=== PATIENT | female | born 1950 | race Caucasian/White ===

== ENCOUNTER → 2018-02-05 | Outpatient (CLI) | payer MEDICARE ==
--- NOTE | 2018-02-06 16:26 | BD ---
EXAMINATION TYPE: MG DEXA axial skeleton. DATE OF EXAM: 02/05/2018 COMPARISON: NONE CLINICAL HISTORY: 67 YR OLD FEMALE....ICD-10 CODE: Z13.820 SCREENING FOR OSTEOPOROSIS Height: 64.5 Weight: 248 FRAX RISK QUESTIONS: Alcohol (3 or more units per day): NO Family History (Parent hip fracture): NO Glucocorticoids (More than 3mos): NO (Ex: prednisone, prednisolone, methylprednisolone, dexamethasone, and hydrocortisone). History of Fracture in Adulthood: NO Secondary Osteoporosis: NO 1. Type 1 Diabetes: NO 2. Hyperthyroidism: NO 3. Menopause before 45: NO 4. Malnutrition: NO 5. 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 Bone mineral density as measured about the Lumbar spine is: ----- L1-L4(G/cm2): 1.547 T Score Values are as follows: ----- L1: 2.1 ----- L2: 3.7 ----- L3: 4.1 ----- L4: 2.4 ----- L1-L4: 3.1 Bone mineral density FIRST BONE DENSITY AT [facility] Bone mineral density about the R hip (g/cm2): 1.029 Bone mineral density about the L hip (g/cm2): 1.041 T Score values are as follows: -----R Neck: -0.7 -----L Neck: -0.9 -----R Total: 0.2 -----L Total: 0.3 Bone mineral density NEW TO [facility] FRAX%s: THERE IS A 7.5% CHANCE OF A MAJOR OSTEOPOROSIS AND A 0.7% FOR HIP FX....PROBABILITY OF FX IN 10 YRS TIME IMPRESSION: Normal (Values between +1 and -1 indicate normal bone mass). Consider repeating this study in 5 year s or sooner if there is some new clinical indication. NOTE: T-SCORE=SD OF THE YOUNG ADULT MEAN.
--- NOTE | 2018-02-07 09:23 | MM ---
Reason for exam: screening (asymptomatic). Last mammogram was performed 1 year and 7 months ago. History: Patient is postmenopausal. Family history of breast cancer in mother at age 60 and breast cancer in aunt at age 60. Benign excisional biopsy of the left breast, 1999. Physical Findings: A clinical breast exam by your physician is recommended on an annual basis and results should be correlated with mammographic findings. MG 3D Screening Mammo W/Cad Bilateral CC and MLO view(s) were taken. Prior study comparison: June 28, 2016, bilateral MG 3d screening mammo w/cad. August 05, 2013, bilateral digital screening mammo w/CAD. There are scattered fibroglandular densities. No significant changes when compared with prior studies. ASSESSMENT: Negative, BI-RAD 1 RECOMMENDATION: Routine screening mammogram of both breasts in 1 year.
== END | disposition home or self-care (01) ==
LOC: RADMAMWWP 15:34
PROVIDERS: ATTEND Family Medicine
DX: Z12.31 Encounter for screening mammogram for malignant neoplasm of breast (principal); Z13.820 Encounter for screening for osteoporosis
CPT/HCPCS: 77063; 77067; 77080

== ENCOUNTER 2019-01-10 21:25 | Observation (INO) | payer MEDICARE ==
[2019-01-10] MEDS ORDERED: NITROGLYCERIN OINT 1 INCH/GM PACKET TOPICAL STA (21:48)
[2019-01-10] MEDS ORDERED: ASPIRIN 81 MG PO STA (21:48)
--- NOTE | 2019-01-10 21:51 | ED ---
General Adult HPI - General Chief complaint: Chest Pain Stated complaint: chest pain Time Seen by Provider: 01/10/19 21:43 Source: patient, family, RN notes reviewed Mode of arrival: wheelchair Limitations: no limitations - History of Present Illness Initial comments: Patient is a pleasant 68-year-old female presenting to the emergency department with chest discomfort. Onset of symptoms was around a half an hour ago. Symptoms lasted approximately 20 minutes and have resolved at this point. Discomfort was 7/10. Discomfort felt like an ache left chest. No radiation. No associated dyspnea or nausea or diaphoresis. Patient did feel somewhat flu shed. No history of similar symptoms previously. - Related Data Home Medications Medication Instructions Recorded Confirmed 7-Keto-Zyme 1 cap PO DAILY 01/10/19 01/10/19 Cholecalciferol [Vitamin D3] 1,000 unit PO DAILY 01/10/19 01/10/19 Chromium Picolinate 800 mcg PO DAILY 01/10/19 01/10/19 Cinnamon 1000mg 2,000 mg PO DAILY 01/10/19 01/10/19 Dm/Acetaminophen/Doxylamine [Vicks 20 ml PO HS 01/10/19 01/10/19 Nyquil Cold-Flu Liquid] User Support Analyst Oral Capsule 1 cap PO DAILY 01/10/19 01/10/19 Hydrochlorothiazide [Hydrodiuril] 12.5 mg PO DAILY 01/10/19 01/10/19 Ibuprofen [Motrin Ib] 600 mg PO Q6H PRN 01/10/19 01/10/19 Krill Oil Plus 1 cap PO DAILY 01/10/19 01/10/19 Lact-Enz Probiotic 1 cap PO DAILY 01/10/19 01/10/19 Liquid Iodine 0.5 ml PO DAILY 01/10/19 01/10/19 Alfredito-Stim 1 cap PO DAILY 01/10/19 01/10/19 Saventaro Cat's Claw 1 tab PO DAILY 01/10/19 01/10/19 Turmeric 400 Mg 400 mg PO DAILY 01/10/19 01/10/19 Ubidecarenone [Co Q-10] 200 mg PO DAILY 01/10/19 01/10/19 Allergies Allergy/AdvReac Type Severity Reaction Status Date / Time amoxicillin [From Augmentin] AdvReac Nausea & Verified 01/10/19 21:55 Vomiting & Diarrhea clavulanic acid AdvReac Nausea & Verified 01/10/19 21:55 [From Augmentin] Vomiting & Diarrhea Review of Systems ROS Statement: Those systems with pertinent positive or pertinent negative responses have been documented in the HPI. ROS Other: All systems not noted in ROS Statement are negative. Constitutional: Denies: fever Eyes: Denies: eye pain ENT: Denies: ear pain Respiratory: Denies: cough, dyspnea Cardiovascular: Reports: chest pain Endocrine: Denies: fatigue Gastrointestinal: Denies: abdominal pain Genitourinary: Denies: dysuria Musculoskeletal: Denies: back pain Skin: Denies: rash Neurological: Denies: weakness Past Medical History Past Medical History: Fibromyalgia Additional Past Medical History / Comment(s): lyme History of Any Multi-Drug Resistant Organisms: None Reported Past Surgical History: Cholecystectomy Past Psychological History: No Psychological Hx Reported Smoking Status: Never smoker Past Alcohol Use History: None Reported Past Drug Use History: None Reported General Exam Limitations: no limitations General appearance: alert, in no apparent distress Head exam: Present: atraumatic Eye exam: Present: normal appearance, PERRL ENT exam: Present: normal oropharynx Neck exam: Present: normal inspection Respiratory exam: Present: normal lung sounds bilaterally. Absent: chest wall tenderness Cardiovascular Exam: Present: regular rate, normal rhythm Expanded Peripheral pulses: 2+: Radial (R), Radial (L), Dorsalis Pedis (R), Dorsalis Pedis (L) GI/Abdominal exam: Present: soft. Absent: tenderness Extremities exam: Present: normal inspection. Absent: pedal edema, calf tenderness Neurological exam: Present: alert Psychiatric exam: Present: normal affect, normal mood Skin exam: Present: normal color Course Vital Signs 01/10/19 01/10/19 01/10/19 21:28 22:31 23:00 Temperature 98.5 F 98.3 F Pulse Rate 86 77 92 Respiratory 18 20 16 Rate Blood Pressure 171/77 133/73 125/69 O2 Sat by Pulse 100 97 98 Oximetry EKG Findings - EKG Comments: EKG Findings:: Normal sinus rhythm 72. [place] 168. QRS 76. QT 404. QTC 442. Left axis. Normal QRS. No acute ST change. Medical Decision Making - Medical Decision Making Patient reevaluated and resting comfortably in bed, symptom free. Patient updated on results and plan. Case was discussed in detail with Dr. dimas, who will admit covering for Dr. Moe. - Lab Data Result diagrams: 01/10/19 22:16 01/10/19 22:16 Lab Results 01/10/19 01/10/19 01/10/19 Range/Units 22:16 22:16 22:16 WBC 7.0 (3.8-10.6) k/uL RBC 5.06 (3.80-5.40) m/uL Hgb 14.9 (11.4-16.0) gm/dL Hct 44.9 (34.0-46.0) % MCV 88.7 (80.0-100.0) fL MCH 29.4 (25.0-35.0) pg MCHC 33.2 (31.0-37.0) g/dL RDW 15.3 (11.5-15.5) % Plt Count 207 (150-450) k/uL Neutrophils % 64 % Lymphocytes % 27 % Monocytes % 5 % Eosinophils % 2 % Basophils % 1 % Neutrophils # 4.5 (1.3-7.7) k/uL Lymphocytes # 1.9 (1.0-4.8) k/uL Monocytes # 0.4 (0-1.0) k/uL Eosinophils # 0.2 (0-0.7) k/uL Basophils # 0.0 (0-0.2) k/uL PT 9.4 (9.0-12.0) sec INR 0.8 (<1.2) APTT 23.4 (22.0-30.0) sec Sodium 140 (137-145) mmol/L Potassium 5.0 (3.5-5.1) mmol/L Chloride 105 (98-107) mmol/L Carbon Dioxide 29 (22-30) mmol/L Anion Gap 6 mmol/L BUN 18 H (7-17) mg/dL Creatinine 0.89 (0.52-1.04) mg/dL Est GFR (CKD-EPI)AfAm 76 (>60 ml/min/1.73 sqM) Est GFR (CKD-EPI)NonAf 66 (>60 ml/min/1.73 sqM) Glucose 157 H (74-99) mg/dL Calcium 9.7 (8.4-10.2) mg/dL Magnesium 2.1 (1.6-2.3) mg/dL Total Bilirubin 0.7 (0.2-1.3) mg/dL AST 33 (14-36) U/L ALT 31 (9-52) U/L Alkaline Phosphatase 61 (38-126) U/L Creatine Kinase 100 (30-135) U/L Troponin I (0.000-0.034) ng/mL Total Protein 7.5 (6.3-8.2) g/dL Albumin 4.5 (3.5-5.0) g/dL 01/10/19 Range/Units 22:16 WBC (3.8-10.6) k/uL RBC (3.80-5.40) m/uL Hgb (11.4-16.0) gm/dL Hct (34.0-46.0) % MCV (80.0-100.0) fL MCH (25.0-35.0) pg MCHC (31.0-37.0) g/dL RDW (11.5-15.5) % Plt Count (150-450) k/uL Neutrophils % % Lymphocytes % % Monocytes % % Eosinophils % % Basophils % % Neutrophils # (1.3-7.7) k/uL Lymphocytes # (1.0-4.8) k/uL Monocytes # (0-1.0) k/uL Eosinophils # (0-0.7) k/uL Basophils # (0-0.2) k/uL PT (9.0-12.0) sec INR (<1.2) APTT (22.0-30.0) sec Sodium (137-145) mmol/L Potassium (3.5-5.1) mmol/L Chloride (98-107) mmol/L Carbon Dioxide (22-30) mmol/L Anion Gap mmol/L BUN (7-17) mg/dL Creatinine (0.52-1.04) mg/dL Est GFR (CKD-EPI)AfAm (>60 ml/min/1.73 sqM) Est GFR (CKD-EPI)NonAf (>60 ml/min/1.73 sqM) Glucose (74-99) mg/dL Calcium (8.4-10.2) mg/dL Magnesium (1.6-2.3) mg/dL Total Bilirubin (0.2-1.3) mg/dL AST (14-36) U/L ALT (9-52) U/L Alkaline Phosphatase (38-126) U/L Creatine Kinase (30-135) U/L Troponin I <0.012 (0.000-0.034) ng/mL Total Protein (6.3-8.2) g/dL Albumin (3.5-5.0) g/dL - Radiology Data Radiology results: image reviewed (Chest x-ray shows no acute process) Disposition Clinical Impression: Chest pain Disposition: ADMITTED IP TO THIS HOSP Is patient prescribed a controlled substance at d/c from ED?: No Referrals: Michael Moe MD [Primary Care Provider] - 1-2 days Decision Time: 23:56
[2019-01-10 22:28] LABS: Basophils % (A) 1 %; Eosinophils # (A) 0.2 k/uL (0-0.7); Eosinophils % (A) 2 %; HCT 44.9 % (34.0-46.0); HGB 14.9 gm/dL (11.4-16.0); Lymphocytes # (A) 1.9 k/uL (1.0-4.8); Lymphocytes % (A) 27 %; MCH 29.4 pg (25.0-35.0); MCHC 33.2 g/dL (31.0-37.0); MCV 88.7 fL (80.0-100.0); Mean Platelet Volume 7.2; Monocytes # (A) 0.4 k/uL (0-1.0); Monocytes % (A) 5 %; Neutrophils # (A) 4.5 k/uL (1.3-7.7); Neutrophils % (A) 64 %; Platelet Count 207 k/uL (150-450); RBC 5.06 m/uL (3.80-5.40); RDW 15.3 % (11.5-15.5)
--- NOTE | 2019-01-10 22:34 | XR ---
EXAM: XR Chest, 2 Views CLINICAL HISTORY: Reason: Chest Pain TECHNIQUE: Frontal and lateral views of the chest. COMPARISON: None available FINDINGS: Lungs: Lung volumes with mild bibasilar subsegmental atelectasis. No focal pulmonary infiltrates or consolidations. Pleural space: No evidence of pleural effusion or pneumothorax. Heart: Heart size is within normal limits. Mediastinum: Mediastinal structures are unremarkable. Vasculature: Thoracic aorta is elongated. Bones/joints: Hypertrophic degenerative changes involving thoracic spine. Mild mid thoracic vertebral compression fractures of indeterminate age. IMPRESSION: No evidence of acute cardiopulmonary disease. Bony findings as described in body of report.
[2019-01-10 22:39] LABS: INR 0.8 (<1.2); Partial Thromboplastin Time 23.4 sec (22.0-30.0); Prothrombin Time 9.4 sec (9.0-12.0)
[2019-01-10 22:40] LABS: Albumin 4.5 g/dL (3.5-5.0); Calcium 9.7 mg/dL (8.4-10.2); Magnesium 2.1 mg/dL (1.6-2.3); Total Bilirubin 0.7 mg/dL (0.2-1.3); Total Protein 7.5 g/dL (6.3-8.2)
[2019-01-10] MEDS ORDERED: NITROGLYCERIN SL TABS 0.4 MG TAB SUBLINGUAL PRN (23:56)
[2019-01-11] MEDS ORDERED: NITROGLYCERIN OINT 1 INCH/GM PACKET TOPICAL SCH
[2019-01-11 03:22] VITALS: BP 128/89; PULSE 82; RESP 20; TEMP 98.4
[2019-01-11] MEDS ORDERED: ASPIRIN 325 MG TAB PO SCH (09:00)
== END 2019-01-11 03:26 | disposition other institution (70) ==
LOC: EC 21:25 → 1SOBS 23:56
PROVIDERS: ADMIT Hospitalist; ATTEND Hospitalist
DX: R07.89 Other chest pain (principal); Z88.0 Allergy status to penicillin; Z88.1 Allergy status to other antibiotic agents; Z79.891 Long term (current) use of opiate analgesic; Z79.899 Other long term (current) drug therapy
CPT/HCPCS: 36415; 71046; 80053; 82550; 83735; 84484; 85025; 85610; 85730; 93005; 99285

== ENCOUNTER → 2019-02-18 | Outpatient (CLI) | payer MEDICARE | LOC: LABWHC1 11:24 | PROVIDERS: ATTEND Otolaryngology | DX: J30.89 Other allergic rhinitis (principal) | CPT/HCPCS: 36415 ==

== ENCOUNTER 2019-07-16 12:26 | Emergency (ER) | payer MEDICARE ==
[2019-07-16] MEDS ORDERED: MORPHINE SULFATE 4 MG/ML SYRINGE IVP STA (12:32)
[2019-07-16 12:42] VITALS: RESP 16
--- NOTE | 2019-07-16 12:48 | ED ---
Fall HPI - General Source: patient, EMS, RN notes reviewed Mode of arrival: EMS Limitations: no limitations <Glenn Vaughn - Last Filed: 07/16/19 16:23> <Lindsey Ingram - Last Filed: 07/20/19 23:51> - General Stated Complaint: Fall Time Seen by Provider: 07/16/19 12:31 - History of Present Illness Initial Comments: 69-year-old female presents emergency Department with chief complaint of fall, right shoulder injury. Patient states that she had with feet states that she went into her garage slipped falling onto her right shoulder. She denies any head injury no loss conscious. Patient has no neck pain, back pain, hip pain. Patient's only complaint is her right shoulder. Patient states that it hurts to move and states that nothing makes it feel improved at this time. Patient denies any paresthesias no elbow or forearm pain (Glenn Vaughn) - Related Data Home Medications Medication Instructions Recorded Confirmed Cholecalciferol [Vitamin D3] 1,000 unit PO DAILY 01/10/19 07/16/19 Chromium Picolinate 800 mcg PO DAILY 01/10/19 07/16/19 Cinnamon 1000mg 2,000 mg PO DAILY 01/10/19 07/16/19 Hydrochlorothiazide [Hydrodiuril] 12.5 mg PO DAILY 01/10/19 07/16/19 Krill Oil Plus 1 cap PO DAILY 01/10/19 07/16/19 Lact-Enz Probiotic 1 cap PO DAILY 01/10/19 07/16/19 Saventaro Cat's Claw 1 tab PO DAILY 01/10/19 07/16/19 Turmeric 400 Mg 400 mg PO DAILY 01/10/19 07/16/19 Ubidecarenone [Co Q-10] 200 mg PO DAILY 01/10/19 07/16/19 Allergies Allergy/AdvReac Type Severity Reaction Status Date / Time amoxicillin [From Augmentin] AdvReac Nausea & Verified 07/16/19 14:08 Vomiting & Diarrhea clavulanic acid AdvReac Nausea & Verified 07/16/19 14:08 [From Augmentin] Vomiting & Diarrhea Review of Systems ROS Other: All systems not noted in ROS Statement are negative. <Glenn Vaughn - Last Filed: 07/16/19 16:23> ROS Other: All systems not noted in ROS Statement are negative. <Lindsey Ingram - Last Filed: 07/20/19 23:51> ROS Statement: Those systems with pertinent positive or pertinent negative responses have been documented in the HPI. Past Medical History Past Medical History: Fibromyalgia Additional Past Medical History / Comment(s): lyme History of Any Multi-Drug Resistant Organisms: None Reported Past Surgical History: Cholecystectomy Past Psychological History: No Psychological Hx Reported Smoking Status: Never smoker Past Alcohol Use History: None Reported Past Drug Use History: None Reported <Glenn Vaughn - Last Filed: 07/16/19 16:23> General Exam Limitations: no limitations General appearance: alert, in no apparent distress Head exam: Present: atraumatic, normocephalic, normal inspection Eye exam: Present: normal appearance, PERRL, EOMI. Absent: scleral icterus, conjunctival injection, periorbital swelling ENT exam: Present: normal exam, normal oropharynx, mucous membranes moist Neck exam: Present: normal inspection, full ROM. Absent: tenderness, meningismus, lymphadenopathy Respiratory exam: Present: normal lung sounds bilaterally. Absent: respiratory distress, wheezes, rales, rhonchi, stridor, chest wall tenderness Cardiovascular Exam: Present: regular rate, normal rhythm, normal heart sounds. Absent: systolic murmur, diastolic murmur, rubs, gallop, clicks Extremities exam: Present: other (Right shoulder limited range of motion, tenderness with palpation, neurovascular intact, no elbow or forearm tenderness on the right) Neurological exam: Present: alert, oriented X3, CN II-XII intact, reflexes normal. Absent: motor sensory deficit <Glenn Vaughn - Last Filed: 07/16/19 16:23> Course Vital Signs 07/16/19 07/16/19 07/16/19 12:35 14:15 14:20 Temperature 98.6 F Pulse Rate 89 55 L 53 L Respiratory 16 16 16 Rate Blood Pressure 130/73 126/75 126/75 O2 Sat by Pulse 97 98 98 Oximetry 07/16/19 07/16/19 07/16/19 14:25 14:30 14:35 Temperature Pulse Rate 60 71 60 Respiratory 16 16 16 Rate Blood Pressure 127/80 141/88 127/80 O2 Sat by Pulse 99 99 99 Oximetry 07/16/19 07/16/19 07/16/19 14:40 14:45 14:50 Temperature Pulse Rate 52 L 59 L 50 L Respiratory 16 16 16 Rate Blood Pressure 116/63 131/72 117/78 O2 Sat by Pulse 99 99 99 Oximetry 07/16/19 07/16/19 07/16/19 14:55 15:00 15:05 Temperature Pulse Rate 54 L 60 61 Respiratory 16 16 16 Rate Blood Pressure 114/66 126/67 115/57 O2 Sat by Pulse 99 99 99 Oximetry 07/16/19 07/16/19 07/16/19 15:10 15:15 15:30 Temperature Pulse Rate 56 L 55 L 62 Respiratory 16 16 16 Rate Blood Pressure 93/67 119/75 118/68 O2 Sat by Pulse 99 98 99 Oximetry 07/16/19 07/16/19 07/16/19 15:45 16:00 17:00 Temperature 97.9 F Pulse Rate 60 59 L 61 Respiratory 16 16 16 Rate Blood Pressure 119/67 120/59 127/69 O2 Sat by Pulse 98 99 98 Oximetry Procedures - Procedural Sedation Procedural Sedation Start Time: 14:25 Procedural Sedation Stop Time: 14:55 Indications: fracture/dislocation reduction ASA Class: II Mallampati Airway Score: 3 Time of Last PO Intake: 10:30 Preparation: residential monitor applied, pulse oximeter, capnometry used, supplemental O2 applied, suction/airway equipment at bedside, IV secured IV Propofol Dose (mgs): 150 (mg) Complications: none Patient Tolerated Procedure: well, no complications <Lindsey Ingram - Last Filed: 07/20/19 23:51> - Procedural Sedation Additional Comments: post reduction x-rays obtained (Lindsey Ingram) Medical Decision Making <Glenn Vaughn - Last Filed: 07/16/19 16:23> <Lindsey Ingram - Last Filed: 07/20/19 23:51> - Medical Decision Making Patient's right shoulder was reduced with satisfactory location. I discussed the case with neck branch on-call for orthopedics states patient will be discharged in a sling and will follow-up. (Glenn Vaughn) I was available for consultation in the emergency department. The history and physical exam were done by the midlevel provider. I was consulted for this patients care. I reviewed the case with the midlevel provider and based on their presentation of the patient, I agree with the assessment, medical decision making and plan of care as documented. I performed the procedural sedation on the patient. She tolerated the procedure well and returned to her respiratory and neurologic baseline prior to discharge. Post reduction films obtained and reviewed by Danyel Marinelli who was organ tuner electronic for orthopedics. Chart was dictated using [employer] dictation software. Attempts were made to correct any dictation errors however some typographical errors may persist. (Lindsey Ingram) Disposition Is patient prescribed a controlled substance at d/c from ED?: No Time of Disposition: 16:24 <Glenn Vaughn - Last Filed: 07/16/19 16:23> <Lindsey Ingram - Last Filed: 07/20/19 23:51> Clinical Impression: Fall, Dislocation of right shoulder joint Disposition: HOME SELF-CARE Condition: Stable Instructions (If sedation given, give patient instructions): Shoulder Dislocation (ED), Moderate Sedation (ED) Additional Instructions: Please return to the Emergency Department if symptoms worsen or any other concerns. Referrals: Michael Moe MD [Primary Care Provider] - 1-2 days Quincy Gongora MD [STAFF PHYSICIAN] - 1-2 days
[2019-07-16] MEDS ORDERED: PROPOFOL 10 MG/ML 20 ML VIAL IV STA (13:31)
--- NOTE | 2019-07-16 13:48 | XR ---
EXAMINATION TYPE: XR shoulder complete RT DATE OF EXAM: 07/16/2019 COMPARISON: NONE HISTORY: Pain TECHNIQUE: Two views are submitted. FINDINGS: There is an anterior dislocation of the shoulder. Hypertrophic change of the AC joint. Flattening of the superior margin of the humeral head.. IMPRESSION: 1. Anterior dislocation of the fracture suspected Hill-Sachs deformity of the humeral head.
[2019-07-16] MEDS ORDERED: ETOMIDATE 2 MG/ML 10 ML VIAL IV STA (14:49)
--- NOTE | 2019-07-16 15:09 | XR ---
EXAMINATION TYPE: XR shoulder limited RT DATE OF EXAM: 07/16/2019 COMPARISON: NONE HISTORY: post reduction TECHNIQUE: Three views are submitted. FINDINGS: The osseous structures are intact. There is no acute fracture or dislocation. Mild arthropathy of th e AC joint. Subsegmental changes involving the lung typical atelectasis. Infiltrate not entirely excl uded. There is a deformity along the superior margin of the humeral head suspicious for a Hill-Sachs deformity. IMPRESSION: 1. Post reduction demonstrates near anatomic alignment. Findings suspicious for Hill-Sachs fracture..
[2019-07-16] MEDS ORDERED: ACET/COD 300 MG/30 MG STARTER PACK 6 TAB BTL PO STA (16:27)
--- NOTE | 2019-07-16 16:43 | XR ---
Right humerus and right shoulder HISTORY: Pain distal humerus, fall 2 views of the right humerus and 3 views of the right shoulder Bone mineralization is mildly reduced. Arthropathy present at the acromioclavicular joint. Joint spac es and alignment are otherwise maintained. IMPRESSION: No fracture or dislocation.
[2019-07-16 17:12] VITALS: BP 127/69; PULSE 61; TEMP 97.9
== END 2019-07-16 17:00 | disposition home or self-care (01) ==
LOC: EC 12:26
DX: S43.004A Unspecified dislocation of right shoulder joint, initial encounter (principal); Z79.899 Other long term (current) drug therapy; Z88.0 Allergy status to penicillin; Z88.1 Allergy status to other antibiotic agents; W01.0XXA Fall on same level from slipping, tripping and stumbling without subsequent striking against object, initial encounter; Y92.59 Other trade areas as the place of occurrence of the external cause
CPT/HCPCS: 73020; 73030; 73060; 99284; 23650; 96374; 96375; J2270; J2704

== ENCOUNTER → 2021-10-22 | Outpatient (CLI) | payer MEDICARE ==
--- NOTE | 2021-10-26 08:29 | MM ---
Reason for exam: screening (asymptomatic). Last mammogram was performed 3 years and 8 months ago. History: Patient is postmenopausal. Family history of breast cancer in mother at age 60 and breast cancer in aunt at age 60. Benign excisional biopsy of the left breast, 1999. Physical Findings: A clinical breast exam by your physician is recommended on an annual basis and results should be correlated with mammographic findings. MG 3D Screening Mammo W/Cad Bilateral CC and MLO view(s) were taken. Prior study comparison: February 05, 2018, bilateral MG 3d screening mammo w/cad. June 28, 2016, bilateral MG 3d screening mammo w/cad. There are scattered fibroglandular densities. No significant changes when compared with prior studies. ASSESSMENT: Benign, BI-RAD 2 RECOMMENDATION: Routine screening mammogram of both breasts in 1 year.
== END | disposition home or self-care (01) ==
LOC: RADMAMWWP 15:45
PROVIDERS: ATTEND Family Medicine
DX: Z12.31 Encounter for screening mammogram for malignant neoplasm of breast (principal); Z78.0 Asymptomatic menopausal state; Z80.3 Family history of malignant neoplasm of breast
CPT/HCPCS: 77063; 77067